=== PATIENT | male | born 1990 | race Caucasian/White ===

== ENCOUNTER 2018-06-29 07:29 | Emergency (ER) | payer BC, OTHER ==
[2018-06-29 07:37] VITALS: BP 116/67; PULSE 72; TEMP 98; BMI 39.7
--- NOTE | 2018-06-29 07:56 | PDOC ---
History of Present Illness - General Chief Complaint: Abscess Boil Stated Complaint: MASS UNDER ARM Time Seen by Provider: 06/29/18 07:38 History Source: Patient Exam Limitations: No Limitations - History of Present Illness Initial Comments: 06/29/18 07:41 27-year-old male with no past medical history presents with an bump underneath his left arm for the past 2 days without fever, chills or drainage. Patient states about 2 years ago had a larger abscess to the exact area where that required incision and drainage and antibiotics. Patient denies history of MRSA diabetes or other immunosuppressive disorders. Timing/Duration: other Severity: mild Associated Symptoms: reports: denies symptoms Past History - Travel Traveled outside of the country in the last 30 days: No - Past Medical History Allergies/Adverse Reactions: Allergies Allergy/AdvReac Type Severity Reaction Status Date / Time Egg Derived Allergy Verified 06/29/18 07:33 CVA: No COPD: No CHF: No GI Disorders: No Hypercholesterolemia: No - Surgical History Cardiac Surgery: No GI Surgery: No - Immunization History Immunization Up to Date: No - Suicide/Smoking/Psychosocial Hx Smoking Status: No Smoking History: Never smoked Have you smoked in the past 12 months: No Number of Cigarettes Smoked Daily: 0 Information on smoking cessation initiated: No Hx Alcohol Use: No Drug/Substance Use Hx: No Patient Lives Alone: No Lives with/in: parents Review of Systems - Review of Systems Able to Perform ROS?: Yes Constitutional: No: Symptoms Reported HEENTM: No: Symptoms Reported Respiratory: No: Symptoms reported ABD/GI: No: Nausea Musculoskeletal: No: Symptoms Reported Integumentary: Yes: Erythema, Lumps Neurological: No: Symptoms reported *Physical Exam - Vital Signs Last Vital Signs Temp Pulse Resp BP Pulse Ox 98.0 F 72 18 116/67 100 06/29/18 07:33 06/29/18 07:33 06/29/18 07:33 06/29/18 07:33 06/29/18 07:33 - Physical Exam General Appearance: Yes: Nourished, Appropriately Dressed. No: Apparent Distress Extremity: positive: Normal Capillary Refill, Normal Inspection, Normal Range of Motion Integumentary: positive: Erythema (noted 1 x 2 raised papule to the left axillary region. No fluctuance/increased warmth or drainage) Neurologic: positive: Motor Strength 5/5 Moderate Sedation - Procedure Monitoring Vital Signs: Procedure Monitoring Vital Signs Temperature 98.0 F 06/29/18 07:33 Pulse Rate 72 06/29/18 07:33 Respiratory Rate 18 06/29/18 07:33 Blood Pressure 116/67 06/29/18 07:33 O2 Sat by Pulse Oximetry (%) 100 06/29/18 07:33 Medical Decision Making - Medical Decision Making 06/29/18 07:54 Chief complaint: Left axillary erythematous papule 2 days no other complaints Exam: Noted raised papule without palpable fluctuance to left axillary region . Surrounding skin intact Plan: Warm soaks 3 days, Bactrim. Instructions to return if symptoms worsen discussed with patient *DC/Admit/Observation/Transfer Diagnosis at time of Disposition: Abscess of left axilla - Discharge Dispostion Disposition: HOME Condition at time of disposition: Good - Referrals Referrals: Arlin Chaparro [Primary Care Provider] - - Patient Instructions Printed Discharge Instructions: DI for Skin Abscess Additional Instructions: Please take antibiotics as prescribed. Please also apply warm soaks of constant heat 4 times a day 15 minutes x 3 days to promote healing/drainage. If he develops worsening swelling, fever or chills please return to the ED. - Post Discharge Activity
== END 2018-06-29 08:05 | disposition home or self-care (01) ==
LOC: JER 07:29
DX: L02.412 Cutaneous abscess of left axilla (principal)
CPT/HCPCS: 99281-25

== ENCOUNTER 2018-06-30 20:19 | Emergency (ER) | payer OTHER ==
[2018-06-30 20:40] VITALS: BP 126/75; PULSE 74; TEMP 98.8; BMI 39.0
--- NOTE | 2018-06-30 21:45 | PDOC ---
History of Present Illness - General Chief Complaint: Abscess Boil Stated Complaint: Abscess Boil Time Seen by Provider: 06/30/18 21:34 - History of Present Illness Initial Comments: 06/30/18 21:43 27-year-old male without comorbidities presents for evaluation of an abscess under his left axilla. He is on antibiotics now he states he was seen last time on the abscess was not ready to be I indeed he feels of this today. Past History - Past Medical History Allergies/Adverse Reactions: Allergies Allergy/AdvReac Type Severity Reaction Status Date / Time Egg Derived Allergy Verified 06/30/18 20:40 Home Medications: Ambulatory Orders Sulfamethoxazole/Trimethoprim [Bactrim Ds -] 1 tab PO BID #14 tablet 06/29/18 Ibuprofen [Advil -] 400 mg PO QID 06/30/18 CVA: No COPD: No CHF: No GI Disorders: No Hypercholesterolemia: No - Surgical History Cardiac Surgery: No GI Surgery: No - Immunization History Immunization Up to Date: No - Suicide/Smoking/Psychosocial Hx Smoking Status: No Smoking History: Never smoked Have you smoked in the past 12 months: No Number of Cigarettes Smoked Daily: 0 Information on smoking cessation initiated: No Hx Alcohol Use: No Drug/Substance Use Hx: No Review of Systems - Review of Systems Integumentary: Yes: Erythema *Physical Exam - Vital Signs Last Vital Signs Temp Pulse Resp BP Pulse Ox 98.8 F 74 18 126/75 99 06/30/18 20:38 06/30/18 20:38 06/30/18 20:38 06/30/18 20:38 06/30/18 20:38 - Physical Exam Comments: 06/30/18 21:44 There is a tender subcentimeter fluctuant area of erythema warmth and induration on the left axilla ready to be I&D today. Moderate Sedation - Procedure Monitoring Vital Signs: Procedure Monitoring Vital Signs Temperature 98.8 F 06/30/18 20:38 Pulse Rate 74 06/30/18 20:38 Respiratory Rate 18 06/30/18 20:38 Blood Pressure 126/75 06/30/18 20:38 O2 Sat by Pulse Oximetry (%) 99 06/30/18 20:38 Medical Decision Making - Medical Decision Making 06/30/18 21:44 Patient refused I&D because he is starting a new job tomorrow he would like to come back in a few days at some point during the weekend to have the abscess I& D he will continue taking the antibiotics. *DC/Admit/Observation/Transfer Diagnosis at time of Disposition: Abscess of left axilla - Discharge Dispostion Disposition: HOME Condition at time of disposition: Stable Decision to Admit order: No - Referrals Referrals: Arlin Chaparro [Primary Care Provider] - - Patient Instructions Printed Discharge Instructions: DI for Incision and Drainage of a Skin Abscess Additional Instructions: Continue taking the antibiotics as directed return to the emergency room when he feel you need an I&D follow-up with your primary care physician or general surgery for I&D of the abscess or in the emergency room - Post Discharge Activity
== END 2018-06-30 22:18 | disposition home or self-care (01) ==
LOC: JERFT 20:19
DX: L02.412 Cutaneous abscess of left axilla (principal)
CPT/HCPCS: 99281-25

== ENCOUNTER 2018-07-01 20:58 | Emergency (ER) | payer OTHER ==
--- NOTE | 2018-07-01 21:02 | PDOC ---
Rapid Medical Evaluation Time Seen by Provider: 07/01/18 21:01 Medical Evaluation: Allergies Allergy/AdvReac Type Severity Reaction Status Date / Time Egg Derived Allergy Verified 06/30/18 20:40 07/01/18 21:01 07/01/18 19:49 I have performed a brief in-person evaluation of this patient. The patient presents with a chief complaint of: Seen in ED for L axilla abscess yesterday, declined I&D, on bactrim, here today because abscess ruptured today, here for re-eval. No f/c. Pertinent physical exam findings: Stable, defer rest to FT provider I have ordered the following:nothing The patient will proceed to the ED for further evaluation Discharge Disposition 07/01/18 21:05 Discharge Disposition - Diagnosis Abscess of left axilla - Referrals - Patient Instructions - Post Discharge Activity
[2018-07-01 21:09] VITALS: BP 124/70; PULSE 84; TEMP 99.3; BMI 40.8
--- NOTE | 2018-07-01 21:37 | PDOC ---
History of Present Illness - General Chief Complaint: Wound Stated Complaint: CYST Time Seen by Provider: 07/01/18 21:01 - History of Present Illness Initial Comments: 07/01/18 21:35 27-year-old male returns for reevaluation of an abscess under his left axilla that opened up today Past History - Past Medical History Allergies/Adverse Reactions: Allergies Allergy/AdvReac Type Severity Reaction Status Date / Time Egg Derived Allergy Verified 07/01/18 21:04 Home Medications: Ambulatory Orders Sulfamethoxazole/Trimethoprim [Bactrim Ds -] 1 tab PO BID #14 tablet 06/29/18 Ibuprofen [Advil -] 400 mg PO QID 06/30/18 CVA: No COPD: No CHF: No GI Disorders: No Hypercholesterolemia: No - Surgical History Cardiac Surgery: No GI Surgery: No - Immunization History Immunization Up to Date: No - Suicide/Smoking/Psychosocial Hx Smoking Status: No Smoking History: Never smoked Have you smoked in the past 12 months: No Number of Cigarettes Smoked Daily: 0 Hx Alcohol Use: No Drug/Substance Use Hx: No Review of Systems - Review of Systems Integumentary: Yes: See HPI *Physical Exam - Vital Signs Last Vital Signs Temp Pulse Resp BP Pulse Ox 99.3 F 84 16 124/70 99 07/01/18 21:04 07/01/18 21:04 07/01/18 21:04 07/01/18 21:04 07/01/18 21:04 - Physical Exam Comments: 07/01/18 21:35 There is a small amount of material which is purulent which was expressed from the abscess the abscess is now nonfluctuant the area remains indurated and erythematous and appropriately sensitive Moderate Sedation - Procedure Monitoring Vital Signs: Procedure Monitoring Vital Signs Temperature 99.3 F 07/01/18 21:04 Pulse Rate 84 07/01/18 21:04 Respiratory Rate 16 07/01/18 21:04 Blood Pressure 124/70 07/01/18 21:04 O2 Sat by Pulse Oximetry (%) 99 07/01/18 21:04 *DC/Admit/Observation/Transfer Diagnosis at time of Disposition: Abscess of left axilla - Discharge Dispostion Disposition: HOME Condition at time of disposition: Stable Decision to Admit order: No - Referrals Referrals: Arlin Chaparro [Primary Care Provider] - Elieser Spain MD [Staff Physician] - - Patient Instructions Additional Instructions: Kidney with the antibiotics and warm compresses. Replaced the dressing twice a day he may return to the emergency room in 2 days 48 hours for reevaluation or follow up with general surgery in 2-3 days - Post Discharge Activity
== END 2018-07-01 21:38 | disposition home or self-care (01) ==
LOC: JERFT 20:58 → JER 20:58 → JERFT 21:38
DX: L02.412 Cutaneous abscess of left axilla (principal)
CPT/HCPCS: 99281-25